=== PATIENT | female | born 1930 | race Caucasian/White ===

== ENCOUNTER 2019-02-09 08:29 | Day surgery (SDC) | payer OTHER, BC ==
[~2019-02-09 08:29] MED LIST: LACTATED RINGER'S 1,000 ML (ENTER RATE) IV
[2019-02-09] MEDS: TROPICAMIDE 1% 15 ML OPH RIGHT EYE (09:01)
[2019-02-09] MEDS: PHENYLephrine 2.5% 15 ML OPH RIGHT EYE (09:01)
[2019-02-09] MEDS: CYCLOPENTOLATE 1% 2 ML OPH RIGHT EYE (09:01)
[2019-02-09] MEDS: MOXIFLOXACIN 0.5% 3 ML OPH RIGHT EYE (09:01)
[2019-02-09] MEDS ORDERED: MIDAZOLAM 1 MG/ML 2 ML INJ (09:48)
[2019-02-09] MEDS ORDERED: LIDOCAINE 1% (MPF) 5 ML VIAL (09:49)
[2019-02-09] MEDS ORDERED: TIMOLOL MALEATE/PF 0.5% OCCUDOSE (0.3 ML) (09:49)
[2019-02-09] MEDS ORDERED: EPINEPHrine 1 MG INJ (09:49)
[2019-02-09] MEDS ORDERED: TETRACAINE 0.5% 4 ML OPH (09:49)
[2019-02-09] MEDS ORDERED: TOBRAMYCIN/DEXAMETH 3.5 GM OPH OINT (09:49)
[2019-02-09] MEDS ORDERED: TIMOLOL 0.5% 5 ML OPH (09:49)
[2019-02-09] MEDS: LIDOCAINE 1% (MPF) 5 ML VIAL INJ ×2 (10:00)
[2019-02-09] MEDS ORDERED: hydrALAzine 20 MG INJ IV (10:00)
[2019-02-09] MEDS: TETRACAINE 0.5% 4 ML OPH RIGHT EYE ×2 (10:00)
[2019-02-09] MEDS ORDERED: FENTAnyl 50 MCG/ML VIAL ×2 (10:21→11:23)
[2019-02-09] MEDS: TOBRAMYCIN/DEXAMETH 3.5 GM OPH OINT RIGHT EYE ×2 (10:35)
[2019-02-09] MEDS: TIMOLOL 0.5% 5 ML OPH RIGHT EYE ×2 (10:35)
[2019-02-09] MEDS: FENTAnyl 50 MCG/ML VIAL IV (11:27)
[2019-02-09] MEDS ORDERED: FENTAnyl 50 MCG/ML VIAL IV (11:30)
[2019-02-09] MEDS ORDERED: HYDROmorphONE 1 MG/5 ML IV SYRINGE IV ×2 (11:30)
== END 2019-02-09 12:25 | disposition home or self-care (01) ==
LOC: SDS 08:29
DX: H25.11 Age-related nuclear cataract, right eye (principal); I10 Essential (primary) hypertension; E03.9 Hypothyroidism, unspecified; Z95.810 Presence of automatic (implantable) cardiac defibrillator; Z86.73 Personal history of transient ischemic attack (TIA), and cerebral infarction without residual deficits
CPT/HCPCS: 66984